=== PATIENT | female | born 1965 | race Caucasian/White ===

== ENCOUNTER 2018-03-09 06:20 | Inpatient (IN) ==
[2018-03-09] MEDS ORDERED: CeFAZolin Syr 2,000MG/20 ML 2,000 MG/20 ML SYRINGE IVPB ONE (06:46)
[2018-03-09] MEDS ORDERED: Albuterol 2.5 MG/3 ML NEBULIZER IH ONE (06:46)
[2018-03-09] MEDS ORDERED: *HR* Propofol 200 MG/20 ML VIAL IVP ONE (06:56)
[2018-03-09] MEDS ORDERED: *HR* Succinylcholine 200 MG/10 ML VIAL IVP ONE (06:56)
[2018-03-09] MEDS ORDERED: Dexamethasone 4 MG/ML VIAL ONE (06:56)
[2018-03-09] MEDS ORDERED: Lidocaine -MPF 2% 2 ML VIAL ONE (06:56)
[2018-03-09] MEDS ORDERED: *HR* FentaNYL (PF) 100 MCG/2 ML VIAL ONE (06:56)
[2018-03-09] MEDS ORDERED: *HR* Midazolam HCl 2 MG/2 ML VIAL ONE (06:56)
[2018-03-09] MEDS ORDERED: Ondansetron 4 MG/2 ML VIAL ONE (06:56)
[2018-03-09] MEDS ORDERED: Ringers Solution, Lactated 1,000 ML IVC SCH ×2 (07:00→12:32)
--- NOTE | 2018-03-09 07:21 | Anesthesia Evaluation PreOp ---
Date of Encounter: 03/09/18 Time of Encounter: 07:15 - Past History Planned Operation: Total abdominal hysterectomy Cardiac History: Denies any Significant Hx Pulmonary History: Smoker P[employer]ED [employer]PER[employer]OR History: Denies Any Significant HX Other Medical History: Denies Any Significant HX Anesthesia History: No Prior Anesthetic Complications, Past Anesthesia Alcohol Use: occasionally Drug use: none Medications and Allergies Allergy/AdvReac Type Severity Reaction Status Date / Time prednisolone Allergy Nausea Verified 03/04/18 10:42 sulfamethoxazole Allergy See Verified 03/04/18 10:42 [From Bactrim] Comments trimethoprim [From Bactrim] Allergy See Verified 03/04/18 10:42 Comments - Meds/Allergy Pre-op Review Medications Reviewed: Yes Allergies Reviewed: Yes Beta Blockers on Current Med List: No Anesthesia Results - Labs Laboratory Tests 03/04/18 03/04/18 03/04/18 10:58 10:58 10:58 WBC 8.5 Hgb 14.5 Hct 43.8 Plt Count 297 PT 11.0 INR 1.0 APTT 32.9 Sodium 136 Potassium 4.3 Chloride 104 Carbon Dioxide 27 BUN 19 Creatinine 0.72 Anesthesia Exam Selected Entries 03/09/18 06:48 Temperature 98.3 F Pulse Rate 70 Respiratory Rate 18 Blood Pressure 132/76 O2 Sat by Pulse Oximetry 96 Weight: 86 kg NPO (# of Hours): over 8 hours - HEENT Pupil (Motor): Pupils equal Mallampati: II Teeth: Normal (overbite) - Cardiac Rhythm: Regular Murmur: None - Pulmonary Breath Sounds: bilateral Clear Respiratory Effort: Symmetrical Anesthesia Assess/Plan ASA Score: 2 Level of consciousness: Cooperative Anesthetic Plan: General Monitoring Plan: Standard Monitors Recovery Plan: PACU (Discussed GA, agreed to proceed.)
[2018-03-09] MEDS ORDERED: Acetaminophen IV 1,000 MG/100 ML INFUS..BTL IVPB ONE (07:22)
--- NOTE | 2018-03-09 07:22 | History & Physical Report ---
Date of Encounter: 03/09/18 Time of Encounter: 07:21 24 Hour HP Update - Instructions Instructions: If the History and Physical is less than 30 days old and was completed prior to A.M. admission and or procedure and has NOT been updated on calendar day of procedure please complete this update prior to performing procedure. - Update Patient reports changes in Medical Condition: No Changes in examination, assessment, or condition: No Changes in Medication: No Preop tests/diagnostics Reviewed: Yes Surgery Remains Indicated: Yes Consent for Planned Operative Procedure(s) Verified: Yes - Pre-Operative Checklist Preoperative Checklist Indicated: Yes Prophylactic Antibiotic Ordered: Yes Home Medications Include Beta David: No Beta David Taken Today (Day of Surgery): No Beta David Taken Yesterday (Day Prior to Surgery): No Is VTE Prophylaxis Indicated?: Yes
[2018-03-09] MEDS ORDERED: *HR* HYDROmorphone 2 MG/ML SYRINGE ONE (07:26)
[2018-03-09] MEDS ORDERED: Albuterol 2.5 MG/3 ML NEBULIZER ONE (09:59)
--- NOTE | 2018-03-09 09:59 | OB/GYN Procedure Note ---
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 Surgeon: Bree Hughes Was there an preschool assistant principal present: Yes Physiatrist: Gomez Cooney Anesthesia Type: General Estimated blood loss (cc): 10 Fluids: crystalloid Procedure Complications: none Specimens collected: fibroid uterus, cervix Disposition: floor Findings: fibroid uterus, surgically absent left tube, normal ovaries bilaterally Narrative: The patient was prepped and draped in the usual sterile fashion. An incision was made into the abdomen down through the subcutaneous tissue, muscular fascia and peritoneum. Once inside the abdominal cavity, a retractor was placed to expose the pelvic cavity with 3 lap sponges. The fibroid uterus was then identified and grasped on the fundus with a double-toothed tenaculum with upward traction. The round ligaments on either side were identified and individually dissected and ligated with the Ligasure device. This allowed us to then create a bladder flap by both blunt and sharp dissection. The right fallopian tube and ovarian ligament were transected through the broad ligament from the uterine body and ligated with the Ligasure. The left ovarian ligament was ligated to free the ovary from the uterus. We then skeletonized the uterine vessels on either side and carefully dissected the bladder flap anteriorly. Posteriorly, the peritoneum was dissected down toward the uterosacral ligaments. The Ligasure device was then placed at each isthmic portion of the cervical body junction where the uterine arteries adjoined the uterus. These were clamped, ligated and divided. The remainder of the uterus was then removed by the [id number] technique using #0 Vicryl on all major pedicles. With removal of the uterus, the vaginal cuff was closed in the usual manner with 0-vicryl. Hemostasis was then inspected and secured throughout the entire area. The ovaries were left in situ. The lap sponges and the retractor was removed. The patient tolerated the operation nicely. There were no complications associated with this surgical procedure to this point. The sponge count was correct times 2 at this time. The Pierce catheter was inspected and clear urine was noted. Having removed all instruments and packs, we then began closure of the abdomen. The fascia was closed with #0 Vicryl in a running continuous manner and the subcutaneous tissue was also closed with #3-0 Vicryl. The skin was closed with #4-0 vicryl. The patient tolerated the operation nicely and was then taken to the Recovery Room in good condition.
[2018-03-09] MEDS ORDERED: Ketorolac 30 MG/ML VIAL IVP ONE (10:03)
[2018-03-09] MEDS ORDERED: *HR* HYDROmorphone 2 MG/ML SYRINGE IVP PRN (10:04)
--- NOTE | 2018-03-09 10:25 | Anesthesia Evaluation Post Op ---
Date of Encounter: 03/09/18 Time of Encounter: 10:23 - Vital Signs Vital Signs: Vital Signs/O2 Sat, Most Current Temp Pulse Resp BP Pulse Ox 98.3 F 70 18 132/76 96 03/09/18 06:48 03/09/18 06:48 03/09/18 06:48 03/09/18 06:48 03/09/18 06:48 - Lungs Lungs: Clear Ascult./Percussion - Airway Airway: Non-obstructed - Cardiovascular Regular Rate - Mental Status Mental Status: Alert & Oriented, Answers Appropriately - Pain Pain Scale: 0 Pain Scale used: Numeric (1 - 10) - Nausea Vomiting Nausea Vomiting: Not Present - Hydration Hydration: Ice chips, Pierce catheter - Discharge PostOp Status: Transfer Patient to floor
[2018-03-09] MEDS ORDERED: Ondansetron 4 MG/2 ML VIAL IVP PRN (12:32)
[2018-03-09] MEDS ORDERED: Naloxone 0.4 MG/ML INJ IVP PRN (12:32)
[2018-03-09] MEDS ORDERED: Ibuprofen 600 MG TABLET PO PRN (12:32)
[2018-03-09] MEDS: *HR* OxyCODONE/APAP 5/325 TABLET PO PRN (22:02)
[2018-03-10 06:51] LABS: Basophils % 0.3 %; Eosinophils # 0.1 K/mcL (0.0-0.6); Eosinophils % 0.6 %; Hematocrit 40.4 % (35.3-44.9); Hemoglobin 13.2 g/dL (11.5-15.4); Immature Granulocytes % 0.3 % (0-4); Lymphocytes # 4.2 K/mcL (0.6-4.6); Lymphocytes % 35.7 %; Mean Corpuscular HGB Conc 32.7 g/dL (31.6-35.5); Mean Corpuscular Hemoglobin 31.7 pg (28.0-33.3); Mean Corpuscular Volume 97.1 fL (83.0-100.0); Mean Platelet Volume 10.1 fL (9.4-12.4); Neutrophils # 6.5 K/mcL (1.6-8.9); Platelet Count 267 K/mcL (140-400); Red Blood Count 4.16 M/mcL (3.82-4.97); Red Cell Distribution Width 12.4 % (11.5-14.5); Segmented Neutrophils % 55.1 %
[2018-03-10] MEDS ORDERED: BuPROPion SR (12 HR) 100 MG TABLET PO SCH (09:00)
[2018-03-10 11:33] VITALS: BP 128/67
[2018-03-10] MEDS: *HR* OxyCODONE/APAP 5/325 TABLET PO PRN (12:52)
--- NOTE | 2018-03-10 15:57 | Discharge Summary ---
Date of Encounter: 03/10/18 Time of Encounter: 15:54 - Discharge Diagnosis (1) Status post hysterectomy Priority: Primary Status: Acute Comments: 53 y/o s/p PATRICIO, POD#1, patient is doing very well, she is ambulating, tolerating PO, has good urine output, pain is under control, wants to go home. - Discharge Medications Home Medications: BuPROPion SR (12 HR) [Wellbutrin SR] 100 mg PO DAILY 03/09/18 [History] Omeprazole [PriLOSEC] 20 mg PO DAILY 03/09/18 [History] Sertraline [Zoloft] 100 mg PO HS 03/09/18 [History] Simethicone [Phazyme] 250 mg PO DAILY PRN MDD 2 CAPS/24 HOURS 03/09/18 [History] Allergies/Adverse Reactions: Allergy/AdvReac Type Severity Reaction Status Date / Time prednisolone Allergy Nausea Verified 03/09/18 07:31 sulfamethoxazole Allergy See Verified 03/09/18 07:31 [From Bactrim] Comments trimethoprim [From Bactrim] Allergy See Verified 03/09/18 07:31 Comments Egg Derived AdvReac Wheezing Verified 03/09/18 12:19 Data Procedures and tests throughout hospitalization: Laboratory Tests 03/10/18 06:38 WBC 11.8 H RBC 4.16 Hgb 13.2 Hct 40.4 MCV 97.1 MCH 31.7 MCHC 32.7 RDW 12.4 Plt Count 267 MPV 10.1 Immature Gran % 0.3 Seg Neutrophils % 55.1 Lymphocytes % 35.7 Monocytes % 8.0 Eosinophils % 0.6 Basophils % 0.3 Neutrophils # 6.5 Lymphocytes # 4.2 Monocytes # 1.0 Eosinophils # 0.1 Basophils # 0.0 Labs on day of discharge: Labs from last 24 hours 03/10/18 06:38 WBC 11.8 H RBC 4.16 Hgb 13.2 Hct 40.4 MCV 97.1 MCH 31.7 MCHC 32.7 RDW 12.4 Plt Count 267 MPV 10.1 Immature Gran % 0.3 Seg Neutrophils % 55.1 Lymphocytes % 35.7 Monocytes % 8.0 Eosinophils % 0.6 Basophils % 0.3 Neutrophils # 6.5 Lymphocytes # 4.2 Monocytes # 1.0 Eosinophils # 0.1 Basophils # 0.0 Date of admission: 03/09/18 11:08 Primary care physician: Alexia Burgos - Patient Status Disposition: Home, Self-Care Condition: Good Functional capacity at discharge: independent ambulation Overall status at discharge: patient is progressing back to baseline - Discharge Instructions Follow Up With: Alexia Burgos MD [Primary Care Provider] - Hospital Course BRANCH OFFICE MANAGER Time Attestation: Total time spent providing and/or coordinating discharge services: Exam - Constitutional Vitals: Temp Pulse Resp BP Pulse Ox 98.0 F 60 16 128/67 96 03/10/18 11:31 03/10/18 11:31 03/10/18 13:24 03/10/18 11:31 03/10/18 06:40 General appearance IM: A&O X 3 - Respiratory Respiratory exam: Present: CTAB - Cardiovascular Cardiovascular exam IM: Present: RRR - GI/Abdominal GI/Abdominal exam IM: normal bowel sounds Incision: intact - VTE Documentation of Mechanical Device: Intermittent pneumatic compression device
== END 2018-03-10 17:00 | disposition home or self-care (01) | DRG 743 ==
LOC: SAMDAY 06:20 → 1NENUOBS 11:08
PROVIDERS: ADMIT Student in an Organized Health Care Education/Training Program; ATTEND Student in an Organized Health Care Education/Training Program